=== PATIENT | male | born 1995 | race Two or more races ===

== ENCOUNTER 2023-06-25 16:23 | Emergency (ER) | payer MEDICAID, OTHER ==
[~2023-06-25] VITALS: Ht 177.8 cm; Wt 105.0 kg
[2023-06-25 16:37] VITALS: BP 148/97; PULSE 76; RESP 16; O2SAT 99
[2023-06-25 17:12] LABS: CLARITY URINE CLEAR (CLEAR); COLOR URINE YELLOW (YELLOW); GLUCOSE URINE NEGATIVE (NEGATIVE); KETONES URINE NEGATIVE (NEGATIVE); LEUKOCYTE ESTERASE URINE NEGATIVE (NEGATIVE); NITRITE URINE NEGATIVE (NEGATIVE); OCCULT BLOOD URINE NEGATIVE (NEGATIVE); PH URINE 5.5 (4.5-8.0); PROTEIN URINE NEGATIVE (NEGATIVE); SPECIFIC GRAVITY URINE 1.017 (1.005-1.030); UROBILINOGEN URINE 0.2 E.U./dL (0.2-1.0)
[2023-06-25 17:30] VITALS: TEMP 98.3
[2023-06-25] MEDS ORDERED: ACETAMINOPHEN 325MG TABLET PO NR (17:30)
[2023-06-30 04:12] LABS: CHLAMYDIA TRACHOMATIS NAA Negative (Negative); NEISSERIA GONORRHOEAE NAA Negative (Negative)
== END 2023-06-25 20:35 | disposition home or self-care (01) ==
LOC: ER 16:23
DX: N50.812 Left testicular pain (principal)
CPT/HCPCS: 76870; 81003; 87491; 87591; 93976; 99284